=== PATIENT | female | born 1960 | race Caucasian/White ===

== ENCOUNTER 2018-05-10 08:15 | Inpatient (IN) | payer OTHER ==
[~2018-05-10] VITALS: Ht 152.4 cm; Wt 72.6 kg
[2018-05-10] MEDS ORDERED: INSULINA LANTUS (11:19)
[2018-05-10] MEDS ORDERED: JANUMET 50-1,01 EACH (11:19)
[2018-05-10] MEDS ORDERED: NEURONTIN300 MG (11:20)
[2018-05-10] MEDS ORDERED: HYDROCHLOROTH12.5 MG (11:20)
[2018-05-10] MEDS ORDERED: GLIPIZIDE ER10 MG (11:20)
[2018-05-10] MEDS ORDERED: SIMVASTATIN40 MG (11:20)
[2018-05-10] MEDS ORDERED: CYMBALTA60 MG (11:21)
[2018-05-10] MEDS ORDERED: ZESTRIL10 MG (11:21)
[2018-05-10] MEDS ORDERED: TOPROL XL50 M1 (11:21)
== END 2018-06-02 12:09 | DRG 470 ==
LOC: SURH 05-16 08:15 → O/R 05-30 08:32 → SURH 05-30 15:18
PROVIDERS: Orthopaedic Surgery
PROC: 0SRD0J9 Replacement of Left Knee Joint with Synthetic Substitute, Cemented, Open Approach (ICD-10-PCS; principal; 2018-05-30 11:15)
DX: M17.11 Unilateral primary osteoarthritis, right knee (principal); D62 Acute posthemorrhagic anemia; E10.9 Type 1 diabetes mellitus without complications; I10 Essential (primary) hypertension